=== PATIENT | female | born 1995 | race Hispanic/Latino ===

== ENCOUNTER → 2019-01-03 13:38 | Outpatient (CLI) | payer OTHER, SELFPAY ==
--- NOTE | 2019-01-03 | DI.US.S_ITS ---
PROCEDURE: US OB <= 14 WEEKS FETUS INDICATIONS: SIZE AND DATES OUTSIDE/PRIOR DATING DATA: Last menstrual period (LMP): 11/22/18. LMP-based estimated date of delivery (OTILIO): 08/29/19. First dating scan (date and location): 01/03/19. Estimated date of delivery (OTILIO) from first dating scan: 08/29/18. TECHNIQUE: Real-time scanning was performed of the fetus and maternal pelvic organs, with image documentation. COMPARISON: None. FINDINGS: Embryo: Single living intrauterine gestation with crown-rump length 3 mm correlates with a 5 week 6 day gestational age and heart rate is 157 beats per minute Measurement variability in dating: +/- 4 weeks by LMP, +/- 7 days by mean sac diameter (use before 6 weeks gestation if crown-rump length not able to be measured), +/- 5 days by crown-rump length (up to 8 weeks 6 days gestation), +/- 7 days by crown-rump length (up to 13 weeks 6 days gestation). Maternal organs: Ovaries normal considering gestational status. Limited images through the kidneys demonstrate no hydronephrosis. IMPRESSION: Early first trimester gestation with heart activity observed, with delivery date projected be centered on 08/29/18, plus or -5 days. Followup anatomic survey at 21 weeks gestation is recommended. Dictated by: David Tucker M.D. on 01/03/2019 at 17:32 Approved by: David Tucker M.D. on 01/03/2019 at 17:33
== END ==
PROVIDERS: PCP Family Medicine; Visit Provider Family Medicine
DX: Z36.87 Encounter for antenatal screening for uncertain dates (principal); Z3A.01 Less than 8 weeks gestation of pregnancy
CPT/HCPCS: 76801; 76817

== ENCOUNTER → 2019-01-31 12:10 | Outpatient (CLI) | payer OTHER, SELFPAY ==
[2019-01-31 12:25] LABS: Add Manual Diff / Slide Review NO; Basophils Absolute Auto 0 /uL (0-100); Basophils Percent Auto 0.4 % (0-2); Eosinophils Absolute Auto 0 /uL (0-450); Eosinophils Percent Auto 0.1 % (2-4); Hematocrit 37.6 % (36-46); Hemoglobin 12.7 g/dL (12.0-16.0); Lymphocytes Absolute Auto 3100 /uL (1100-4500); Lymphocytes Percent Auto 26.6 % (25-40); Mean Corpuscular HGB Conc 33.8 % (30-36); Mean Corpuscular Volume 85.9 fL (80-100); Monocytes Absolute Auto 700 /uL (0-900); Monocytes Percent Auto 6.4 % (3-14); Neutrophils Absolute Auto 7700 /uL (1500-7000); Neutrophils Percent Auto 66.5 % (50-75); Platelet Count 274 X10^3/uL (150-400); Red Blood Cell Count 4.38 X10^6/uL (4.0-5.2); White Blood Cell Count 11.6 X10^3/uL (4.5-11.0)
[2019-01-31 12:48] LABS: Appearance Urine UA CLEAR; Bilirubin Urine UA NEGATIVE (NEGATIVE); Color Urine UA YELLOW; Glucose Urine UA NEGATIVE (Negative); Ketones Urine UA NEGATIVE (NEGATIVE); Leukocyte Esterase Urine UA NEGATIVE (NEGATIVE); Nitrite Urine UA NEGATIVE (Negative); Occult Blood Urine UA NEGATIVE (Negative); Protein Urine UA NEGATIVE (Negative); Specific Gravity Urine UA 1.025 (1.000-1.035); Urobilinogen Urine UA 0.2 E.U./dL (0.2); pH Urine UA 5.5 (4.5-8.0)
[2019-01-31 18:08] LABS: Hepatitis B Surface Antigen NEGATIVE s/c (NEGATIVE); Rubella Antibody IgG 93.8 IU/mL (>15)
[2019-01-31 18:34] LABS: HIV 1 & 2 Ab/Ag 4th Gen Combo NEGATIVE (NEGATIVE); Hep C Virus Ab w/Reflex Quant NEGATIVE s/c (NEGATIVE)
[2019-01-31 19:46] LABS: Urine N gonorrhoeae NOT DETECTED
[2019-01-31 20:04] LABS: Urine Chlamydia NOT DETECTED
[2019-02-02 14:15] LABS: RPR Screen Nonreactive (Nonreactive)
== END ==
PROVIDERS: PCP Family Medicine; Visit Provider Obstetrics & Gynecology
DX: Z34.81 Encounter for supervision of other normal pregnancy, first trimester (principal); Z3A.10 10 weeks gestation of pregnancy
CPT/HCPCS: 36415; 80055; 81003; 86787; 86803; 86850; 86900; 86901; 87077; 87086; 87185; 87186; 87389; 87491; 87591

== ENCOUNTER → 2019-03-20 15:41 | Outpatient (CLI) | payer OTHER, SELFPAY ==
[2019-03-28 11:21] LABS: Calc Gestational Age 16.9; Cigarette Smoker NO; Donated Egg N; Donor Egg Age NOT GIVEN; Estriol, Free 1.37 ng/mL; Inhibin A, Dimeric 152 pg/mL; Maternal Ethnicity HISPANIC; Maternal Weight 128 lbs; Number of Fetuses NOT GIVEN; Previous Pregnancy Down Syndro N; hCG, MoM 0.84; hCG, Serum 27.1 IU/mL
== END ==
PROVIDERS: PCP Family Medicine; Visit Provider Obstetrics & Gynecology
DX: Z34.02 Encounter for supervision of normal first pregnancy, second trimester (principal); Z3A.16 16 weeks gestation of pregnancy
CPT/HCPCS: 36415; 82105; 82677; 84702; 86336

== ENCOUNTER → 2019-04-18 09:10 | Outpatient (CLI) | payer OTHER, SELFPAY ==
--- NOTE | 2019-04-18 09:11 | DI.US.S_ITS ---
PROCEDURE: US OB >= 14 WEEKS FETUS INDICATIONS: ANATOMY SCAN OUTSIDE/PRIOR DATING DATA: Last menstrual period (LMP): 11/22/18. LMP-based estimated date of delivery (OTILIO): 08/29/19. First dating scan (date and location): 01/03/19. Estimated date of delivery (OTILIO) from first dating scan: 08/30/19. TECHNIQUE: Real-time scanning was performed of the fetus, with image documentation and biometric measurements. COMPARISON: [facility], , OB >= 14 WEEKS FETUS, 03/20/2019, 15:28. FINDINGS: General: A single living intrauterine gestation is present. Presentation: Vertex. Placenta: Placental position is posterior fundal, without previa. Amniotic fluid index: 10.7 cm, normal range is 5-24 cm. heart rate: 147 beats per minute. Maternal cervical canal: 3.1 cm long. Normal lower limit is 2.5 cm. biometrics: Biparietal diameter: 20 weeks 3 days Head circumference: 20 weeks 5 days Abdominal circumference: 22 weeks Femur length: 20 weeks 1 day Estimated gestational age from initial scan: 20 weeks 6 days Composite gestational age from present scan: 20 weeks 5 days 397 g Estimated weight and percentile: 57 percentile Measurement variability for biometric dating: +/- 7 days from 14 weeks to 15 weeks 6 days gestation, +/- 10 days from 16 weeks to 21 weeks 6 days gestation, +/- 2 weeks from 22 weeks to 27 weeks 6 days gestation, +/- 3 weeks for 28 weeks gestation or later. weight reference: 4500 g or EFW >90/95% is considered macrosomia or large for gestational age. EFW <10% is small for gestational age. EFW 5% or less is considered intra-uterine growth restriction. Anatomic survey: Neuro: Ventricles are non-dilated at less than 10 mm. Cisterna magna is normal at 3-11 mm. Cerebellum is normal in size and morphology. Nuchal skin fold: Normal at less than 6 mm between 14-21 weeks gestational age. Face: Nose and lips, facial profile are normal. Spine: No evidence for spina bifida. Heart: 4-chambered heart is present, with normal ventricular outflow tracts. Small amount of pericardial fluid present which is likely within normal limits representing physiologic pericardial fluid. Diaphragm: Diaphragm is intact. Stomach: Left-sided stomach is present. Kidneys: No hydronephrosis. Normal is less than 5 mm in 2nd trimester, less than 7 mm in 3rd trimester. Cord: 3-vessel cord has orthotopic insertion. Bladder: Normal in size. Extremities: The left foot is not well visualized; otherwise normal extremities. IMPRESSION: 1. Single living IUP redemonstrated interval growth is normal. 2. The left foot is not visualized; otherwise normal anatomic survey. 3. Small amount of pericardial fluid, likely within normal limits and physiologic which can also be reassessed on followup examination. Dictated by: Michael Pierre [facility] Interpreted: Caitlin Lewis MD on 04/18/2019 at 12:55 Approved by: Caitlin Lewis MD, PhD on 04/18/2019 at 13:27
[2019-04-18 13:01] LABS: Appearance Urine UA SL CLOUDY; Bilirubin Urine UA NEGATIVE (NEGATIVE); Color Urine UA YELLOW; Glucose Urine UA NEGATIVE (Negative); Ketones Urine UA NEGATIVE (NEGATIVE); Leukocyte Esterase Urine UA 3+ (NEGATIVE); Nitrite Urine UA NEGATIVE (Negative); Occult Blood Urine UA 2+ (Negative); Protein Urine UA TRACE (Negative); Urobilinogen Urine UA 0.2 E.U./dL (0.2)
[2019-04-18 13:12] LABS: pH Urine UA 7.5 (4.5-8.0)
[2019-04-18 13:22] LABS: RBC Urine 0-1/HPF (0-5/HPF)
[2019-04-18 13:23] LABS: Bacteria Urine Many (>30); Squamous Epithelial Cell Urine >30 /HPF (0-5/HPF); WBC Urine >100/HPF (0-5/HPF)
== END ==
PROVIDERS: PCP Family Medicine; Visit Provider Obstetrics & Gynecology
DX: Z36.89 Encounter for other specified antenatal screening (principal); Z3A.20 20 weeks gestation of pregnancy; O99.89 Other specified diseases and conditions complicating pregnancy, childbirth and the puerperium; R31.9 Hematuria, unspecified
CPT/HCPCS: 76811; 81001

== ENCOUNTER → 2019-05-15 12:12 | Outpatient (CLI) | payer OTHER, SELFPAY | PROVIDERS: PCP Family Medicine; Visit Provider Obstetrics & Gynecology | DX: R82.90 Unspecified abnormal findings in urine (principal) | CPT/HCPCS: 87077; 87086; 87186 ==

== ENCOUNTER → 2019-06-13 10:09 | Outpatient (CLI) | payer OTHER, SELFPAY | PROVIDERS: PCP Family Medicine; Visit Provider Family Medicine | DX: Z34.83 Encounter for supervision of other normal pregnancy, third trimester (principal) | CPT/HCPCS: 87077; 87086; 87147; 87186 ==

== ENCOUNTER → 2019-06-27 14:36 | Outpatient (CLI) | payer OTHER, SELFPAY | PROVIDERS: PCP Family Medicine; Visit Provider Family Medicine | DX: Z34.00 Encounter for supervision of normal first pregnancy, unspecified trimester (principal) | CPT/HCPCS: 87077; 87086 ==

== ENCOUNTER 2019-07-14 04:38 | Observation (INO) | payer OTHER, SELFPAY ==
--- NOTE | 2019-07-14 05:03 | DI.US.S_ITS ---
PROCEDURE: US OB LIMITED INDICATIONS: CERVICAL LENGTH TECHNIQUE: Real-time scanning was performed of the fetus, with image documentation and biometric measurements. Additionally, endovaginal pelvic ultrasound imaging was performed to evaluate the cervical length. COMPARISON: [facility], US, US OB >= 14 WEEKS FETUS, 06/27/2019, 15:09. [facility], , US OB >= 14 WEEKS FETUS, 04/18/2019, 9:23. [facility], US, US OB >= 14 WEEKS FETUS, 03/20/2019, 15:28. [facility], US, US OB <= 14 WEEKS FETUS, 01/31/2019, 11:57. FINDINGS: General: A single living intrauterine gestation is present. Presentation: Cephalic Placenta: Placental position is posterior fundal Amniotic fluid index: 22 cm. heart rate: 140 beats per minute. Maternal cervical canal: 3.0 cm in length. The cervix is closed. No funneling or fluid is seen within the endocervical canal. Other: No gross anatomic abnormalities are evident of the provided images of the fetus. The fetus is not adequately evaluated. IMPRESSION: 1. The cervix is closed and measures 3.0 cm in length. 2. Live intrauterine . Dictated by: Yimi Sunshine M.D. on 07/14/2019 at 7:58 Approved by: Yimi Sunshine M.D. on 07/14/2019 at 8:00
[2019-07-14] MEDS: NIFEdipine 10 MG CAPSULE PO ×4 (05:26→06:21)
[2019-07-14 06:08] LABS: Appearance Urine UA CLEAR; Bilirubin Urine UA NEGATIVE (NEGATIVE); Color Urine UA YELLOW; Glucose Urine UA NEGATIVE (Negative); Ketones Urine UA TRACE (NEGATIVE); Leukocyte Esterase Urine UA 1+ (NEGATIVE); Nitrite Urine UA NEGATIVE (Negative); Occult Blood Urine UA TRACE-LYSED (Negative); Protein Urine UA 1+ (Negative); Specific Gravity Urine UA 1.025 (1.000-1.035); Urobilinogen Urine UA 0.2 E.U./dL (0.2)
[2019-07-14 06:15] LABS: RBC Urine None Seen (0-5/HPF)
[2019-07-14 06:17] LABS: Bacteria Urine Moderate (10-30); Squamous Epithelial Cell Urine 1-5 /HPF (0-5/HPF); WBC Urine 10-30/HPF (0-5/HPF)
[2019-07-14 06:18] LABS: Culture Indicated Urine Specimen Cultured; Sperm Urine PRESENT
--- NOTE | 2019-07-14 06:49 | PM.OBTRLD ---
Visit Information Visit Information Date of evaluation: 07/14/19 Primary OB Provider: Nadia Benitez On-call OB Provider: Antoinette Gomez Reason for Evaluation: Yes pre-term labor Comments/Additional reasons for admission: Patient called due to severe low back pain radiating to her hips that was preventing her from sleeping. Denied contractions, bleeding or leaking of fluid. This is her first baby. She has been treated for 2 UTIs this but denied urinary symptoms at this time or fevers. Vital Signs Vital Signs: Temperature 98.6? blood pressure 134/86 heart rate 84 PFSH Medical History Anxiety (Chronic ~2018) Depression (Chronic ~2018) Family History Grandfather Cancer Diabetes mellitus Heart disease Grandmother Essential hypertension Thyroid cancer Mother Age: 46 Essential hypertension Father High cholesterol Hypertension Social History Smoking Status: Never smoker Objective Labs Labs: Laboratory Results - last 24 hr 07/14/19 05:40 Urine Color Yellow Urine Appearance Clear Urine pH 5.0 Ur Specific [place] 1.025 Urine Protein 1+ H Urine Glucose (UA) Negative Urine Ketones Trace H Urine Occult Blood Trace-lysed Urine Nitrate Negative Urine Bilirubin Negative Urine Urobilinogen 0.2 Ur Leukocyte Esterase 1+ H Urine RBC None seen Urine WBC 10-30/hpf H Ur Squamous Epith Cells 1-5 /hpf D Urine Bacteria Moderate (10-30) H Urine Sperm Present Ur Culture Indicated? Specimen cultured Evaluation Evaluation Baseline heart rate: 140 Variability: Moderate (11-25) monitor accelerations: Present monitor decelerations: Absent Contraction Frequency (minutes): 3 Category of Tracing: I Laboratory results: Laboratory Tests 07/14/19 05:40 Urine Color Yellow Urine Appearance Clear Urine pH 5.0 Ur Specific [place] 1.025 Urine Protein 1+ H Urine Glucose (UA) Negative Urine Ketones Trace H Urine Occult Blood Trace-lysed Urine Nitrate Negative Urine Bilirubin Negative Urine Urobilinogen 0.2 Ur Leukocyte Esterase 1+ H Urine RBC None seen Urine WBC 10-30/hpf H Ur Squamous Epith Cells 1-5 /hpf D Urine Bacteria Moderate (10-30) H Urine Sperm Present Ur Culture Indicated? Specimen cultured Diagnosis, Plan/Disposition Final Diagnosis (1) 33 weeks gestation of : Current Visit: No Status: Acute (2) contractions: Current Visit: No Status: Acute (3) UTI in : Current Visit: No Status: Acute Plan/Disposition Plan: Patient is a 23-year-old at 33 weeks and 3 days gestation who presented with low back pain and regular contractions. Cervical length was 3 cm on ultrasound which was reassuring however patient continued to contract. UA suspicious for UTI and patient has had 2 UTIs this . Patient was given a dose of Macrobid as well as nifedipine per protocol and 1 L of LR. After treatment, contractions ceased and patient reported feeling much better with respect to her back. She will discharge home and complete a course of Macrobid. Urine culture is pending. OB Disposition: home
[2019-07-14] MEDS: LACTATED RINGERS 1,000 ML 1000 ML IV (07:20)
[2019-07-14] MEDS: NITROFURANTOIN ER 100 MG CAPSULE PO (07:20)
== END 2019-07-14 09:00 | disposition home or self-care (01) ==
LOC: LABOR 04:40
PROVIDERS: Admitting Provider Family Medicine; PCP Family Medicine; Referring Provider Family Medicine; Visit Provider Family Medicine
DX: O47.03 False labor before 37 completed weeks of gestation, third trimester (principal); N39.0 Urinary tract infection, site not specified; Z3A.33 33 weeks gestation of pregnancy
CPT/HCPCS: 59025; 59050; 76815; 76830; 81003; 81015; 87077; 87086; 87186; 96360; G0378; G0379

== ENCOUNTER 2019-07-29 05:35 | Observation (INO) | payer OTHER, SELFPAY ==
[2019-07-29] MEDS: NIFEdipine 10 MG CAPSULE PO ×4 (06:13→07:17)
[2019-07-29] MEDS: LACTATED RINGERS 1,000 ML 1000 ML IV (06:13)
[2019-07-29 06:39] LABS: Appearance Urine UA CLEAR; Bilirubin Urine UA NEGATIVE (NEGATIVE); Color Urine UA YELLOW; Glucose Urine UA NEGATIVE (Negative); Ketones Urine UA NEGATIVE (NEGATIVE); Leukocyte Esterase Urine UA TRACE (NEGATIVE); Nitrite Urine UA NEGATIVE (Negative); Occult Blood Urine UA TRACE-INTACT (Negative); Protein Urine UA NEGATIVE (Negative); Specific Gravity Urine UA 1.015 (1.000-1.035); Urobilinogen Urine UA 0.2 E.U./dL (0.2)
[2019-07-29 06:47] LABS: RBC Urine 0-1/HPF (0-5/HPF); Squamous Epithelial Cell Urine 0-1 /HPF (0-5/HPF); WBC Urine 0-1/HPF (0-5/HPF)
[2019-07-29 06:48] LABS: Bacteria Urine Few (2-10); Culture Indicated Urine Specimen Cultured; Mucus Urine 2+ (Negative)
--- NOTE | 2019-07-29 09:41 | PM.OBTRLD ---
Visit Information Visit Information Date of evaluation: 07/29/19 Primary OB Provider: Nadia Benitez On-call OB Provider: Ximena Wang Reason for Evaluation: Yes rule out labor Comments/Additional reasons for admission: This patient is a 23-year-old at 35 and 6 by 10 week ultrasound with a history of multiple UTIs in and evaluations for contractions, presenting reporting contractions. The patient reports that overnight, she had bouts of pain that were constant for 5 minutes, radiated down her hips from her lower back, and were precipitated by movement. She reports that she had this cramping pain in her low back for 5 minutes straight, with 3-4 minutes in between cramps and was precipitated by movement. She reports good movement, denies vaginal bleeding or loss of fluid, denies dysuria, denies GI complaints, and reports no other complaints obstetrical or otherwise, with no signs of pyelonephritis. The patient has been treated for UTI twice during this , most recently 2 weeks ago with Macrobid. Patient denies any other complications or contributory medical or surgical history. Vital Signs Vital Signs: 109/65, HR 80, T 36.7 [facility] Medical History Anxiety (Chronic ~2018) Depression (Chronic ~2018) Family History Grandfather Cancer Diabetes mellitus Heart disease Grandmother Essential hypertension Thyroid cancer Mother Age: 46 Essential hypertension Father High cholesterol Hypertension Social History Smoking Status: Never smoker Review of Systems Constitutional Constitutional: Reports system reviewed and no additional complaints, except as documented Cardiovascular Cardiovascular: Reports system reviewed; no additional complaints, except as documented Respiratory Respiratory: Reports system reviewed and no additional complaints, except as documented Gastrointestinal Gastrointestinal: Reports as per HPI Genitourinary Genitourinary: Reports as per HPI Musculoskeletal Musculoskeletal: Reports as per HPI Neurologic Neurologic: Reports system reviewed and no additional complaints, except as documented Exam Const General: cooperative, healthy appearing and comfortable Resp Effort & Inspection: normal respiratory effort Auscultation: clear to auscultation bilaterally Cardio Rate: regular rate Rhythm: regular rhythm GI Palpation: soft and No tender Other: No suprapubic tenderness External Female Exam: external appearance normal Skin General: no rashes or lesions noted Objective Labs Labs: Laboratory Results - last 24 hr 07/29/19 06:30 Urine Color Yellow Urine Appearance Clear Urine pH 5.0 Ur Specific [place] 1.015 Urine Protein Negative Urine Glucose (UA) Negative Urine Ketones Negative Urine Occult Blood Trace-intact Urine Nitrate Negative Urine Bilirubin Negative Urine Urobilinogen 0.2 Ur Leukocyte Esterase Trace H Urine RBC 0-1/hpf Urine WBC 0-1/hpf Ur Squamous Epith Cells 0-1 /hpf Urine Bacteria Few (2-10) H Urine Mucus 2+ H Ur Culture Indicated? Specimen cultured Evaluation Evaluation Baseline heart rate: 135 Variability: Moderate (11-25) monitor accelerations: Present monitor decelerations: Absent Contraction Frequency (minutes): 3 Uterine Contraction Intensity: Mild Category of Tracing: I Cervical dilation (cm): 0 Cervical effacement (%): 50 station: -3 Laboratory results: Laboratory Tests 07/29/19 06:30 Urine Color Yellow Urine Appearance Clear Urine pH 5.0 Ur Specific [place] 1.015 Urine Protein Negative Urine Glucose (UA) Negative Urine Ketones Negative Urine Occult Blood Trace-intact Urine Nitrate Negative Urine Bilirubin Negative Urine Urobilinogen 0.2 Ur Leukocyte Esterase Trace H Urine RBC 0-1/hpf Urine WBC 0-1/hpf Ur Squamous Epith Cells 0-1 /hpf Urine Bacteria Few (2-10) H Urine Mucus 2+ H Ur Culture Indicated? Specimen cultured Comments: External os 2 cm, closed internal os. Diagnosis, Plan/Disposition Plan/Disposition Plan: The this patient is having contractions, serial cervical exams 3 hours apart have not shown any cervical dilation. It has been 2 hours since her last dose of nifedipine per the usual protocol, and her contraction pattern has not significantly changed. The patient reports that her symptoms have entirely resolved, they have remained resolved for the past 2 hours. The patient does have signs of a UTI on her UA, though improved since her prior exam. In the setting of contractions and multiple prior UTIs and given the association of UTI with labor an dincreased risk of pyelonephritis, The patient will be treated. I discussed a dose of IV Ancef with the patient along with p.o. Keflex for 5 days b.i.d. at home, given that her penicillin allergy is a rash. I discussed with the patient that she may still have labor, and she plans to remain in [place] until tomorrow. We discussed precautions for return and signs and symptoms of labor, encouraged her to follow-up with Dr. Benitez within the week. All questions were answered and the patient vocalized understanding. OB Disposition: home
[2019-07-29] MEDS: CEFAZOLIN 2 GM/100 ML FROZ.PIGGY IV (10:16)
== END 2019-07-29 11:17 | disposition home or self-care (01) ==
PROVIDERS: Obstetrics & Gynecology; Admitting Provider Family Medicine; PCP Family Medicine; Referring Provider Family Medicine; Visit Provider Family Medicine
DX: O47.03 False labor before 37 completed weeks of gestation, third trimester (principal); Z3A.35 35 weeks gestation of pregnancy
CPT/HCPCS: 59025; 59050; 81001; 87077; 87086; 87186; 96360; 96372; G0378; G0379; J0690

== ENCOUNTER → 2019-08-02 08:25 | Outpatient (CLI) | payer OTHER, SELFPAY ==
[2019-08-03 12:15] LABS: Strep Grp B PCR NEG for Grp B Strep
== END ==
PROVIDERS: PCP Family Medicine; Visit Provider Family Medicine
DX: Z34.03 Encounter for supervision of normal first pregnancy, third trimester (principal); Z3A.36 36 weeks gestation of pregnancy
CPT/HCPCS: 87653

== ENCOUNTER → 2019-08-08 10:19 | Outpatient (CLI) | payer OTHER, SELFPAY | PROVIDERS: PCP Family Medicine; Visit Provider Family Medicine | DX: Z34.00 Encounter for supervision of normal first pregnancy, unspecified trimester (principal); Z3A.37 37 weeks gestation of pregnancy | CPT/HCPCS: 87086 ==

== ENCOUNTER 2019-08-20 11:11 | Inpatient (IN) | payer OTHER, SELFPAY ==
[2019-08-20] MEDS: LACTATED RINGERS 1,000 ML 100 ML IV ×2 (12:15→22:53)
[2019-08-20 12:24] LABS: Add Manual Diff / Slide Review NO; Basophils Absolute Auto 100 /uL (0-100); Basophils Percent Auto 0.4 % (0-2); Eosinophils Absolute Auto 0 /uL (0-450); Eosinophils Percent Auto 0.1 % (2-4); Hematocrit 35.5 % (36-46); Hemoglobin 11.5 g/dL (12.0-16.0); Lymphocytes Absolute Auto 2400 /uL (1100-4500); Lymphocytes Percent Auto 14.6 % (25-40); Mean Corpuscular HGB Conc 32.4 % (30-36); Mean Corpuscular Volume 77.1 fL (80-100); Monocytes Absolute Auto 700 /uL (0-900); Monocytes Percent Auto 3.9 % (3-14); Neutrophils Absolute Auto 13500 /uL (1500-7000); Platelet Count 276 X10^3/uL (150-400); White Blood Cell Count 16.7 X10^3/uL (4.5-11.0)
--- NOTE | 2019-08-20 12:35 | P.HPOB_ITS ---
OB HPI Date/Time Date of admission: 08/20/19 Date Patient Seen: 08/20/19 Time Patient Seen: 12:30 History of Present Condition Chief complaint: OBSERVATION OF LABOR : 1 Para: 0 Estimated Date of Delivery: 08/29/19 Estimated Gestational Age (weeks): 38w5d Narrative: Leann Huntley is a 23 yo at 38w5d here due to painful contractions. Pt reports losing her mucus plug earlier this morning, and contractions starting shortly after. Increasing in frequency and intensity since then. Primarily in her back. No LOF or vaginal bleeding. Feeling baby move regularly. History of Present care: good care, initiated at week # (10) and pounds weight gain (53) Dating criteria: LMP confirmed by 1st trimester US Ultrasounds: normal 1st trimester US and normal mid trimester US Obstetrical complications: other (difficult to cure E coli UT) Medical complications: other (depression) Preadmission Labs Blood type: A (+) positive -: Antibody screen: negative, GBS status: negative, HBsAG: negative, HIV: negative and RPR/VDLR: negative -: Chlamydia screen: not detected and Gonorrhea screen: not detected -: Rubella: immune and Varicella: immune HCAB: negative Quad screen: Normal 1 hr GTT: 106 Evaluation Evaluation Baseline heart rate: 145 Variability: Moderate (11-25) monitor accelerations: Present monitor decelerations: Absent Contraction Frequency (minutes): 3 Uterine Contraction Intensity: Strong/Firm Category of Tracing: I Cervical dilation (cm): 4 Cervical effacement (%): 90 station: -2 Laboratory results: Laboratory Tests 08/20/19 12:11 WBC 16.7 H RBC 4.60 Hgb 11.5 L Hct 35.5 L MCV 77.1 L MCH 25.0 L MCHC 32.4 RDW 16.0 H Plt Count 276 Neut % (Auto) 81.0 H Lymph % (Auto) 14.6 L Bradley % (Auto) 3.9 Eos % (Auto) 0.1 L Baso % (Auto) 0.4 Neut # (Auto) 20623 H Lymph # (Auto) 2400 [place] # (Auto) 700 Eos # (Auto) 0 Baso # (Auto) 100 PFSH Social History Smoking Status: Smoker, status unknown Meds Home Medications and Allergies Home Medications Medication Instructions Recorded Confirmed Type citalopram 40 mg tablet 40 mg PO DAILY 01/31/19 08/20/19 History prenat.vits,arlen,zut-sbed-gndwf 1 tab PO DAILY 01/31/19 08/20/19 History bupropion HCl 150 mg 24 hr tablet, 150 mg PO QAM 02/01/19 08/20/19 History extended release cephalexin 500 mg PO BID #10 tab 07/29/19 08/20/19 Rx Allergies Allergy/AdvReac Type Severity Reaction Status Date / Time amoxicillin AdvReac Skin Rash Verified 06/13/19 09:16 Exam Narrative Exam Narrative: Gen: NAD, sitting comfortably in bed, appears well CV: RRR, no murmurs Resp: clear to auscultation bilaterally Abd: soft, nontender, nondistended, gravid Ext: trace edema Objective Labs Result Diagrams: 08/20/19 12:11 Labs: Laboratory Results - last 24 hr 08/20/19 12:11 WBC 16.7 H RBC 4.60 Hgb 11.5 L Hct 35.5 L MCV 77.1 L MCH 25.0 L MCHC 32.4 RDW 16.0 H Plt Count 276 Neut % (Auto) 81.0 H Lymph % (Auto) 14.6 L Bradley % (Auto) 3.9 Eos % (Auto) 0.1 L Baso % (Auto) 0.4 Neut # (Auto) 39287 H Lymph # (Auto) 2400 [place] # (Auto) 700 Eos # (Auto) 0 Baso # (Auto) 100 Assessment and Plan Assessment and Plan Assessment and Plan narrative: 23yo at 38w5d who presented with regular painful contractions, in active labor. Pt with SROM and clear fluid after initial cervical exam. GBS negative, Rh positive. - Expectant management, anticipate - FHT reassuring - Epidural for pain control in place - Continue to monitor contraction frequency, may need pitocin for augmentation - GBS negative, no prophlaxis indicated
--- NOTE | 2019-08-20 12:39 | PM.AN.REGBLK ---
Regional Block Pre-procedure Procedure: Continuous Lumbar Epidural for L&D Attending OB provider: Nadia Benitez PMH/ROS narrative: term labor, no complications. Hx: No personal or family history of anesthesia problems. ASA Class: II Labs: Hct 35.5 % (36-46) L 08/20/19 12:11 Plt Count 276 X10^3/uL (150-400) 08/20/19 12:11 Medications: Current Medications Generic Name Dose Route Start Last Admin Trade Name Freq PRN Reason Stop Dose Admin Diphenhydramine HCl 25 mg 08/20/19 12:05 Benadryl IV Q10M PRN Pruritis Fentanyl 50 mcg 08/20/19 11:28 Sublimaze IV Q1H PRN Pain, Moderate (4-6) Lactated Ringer's 1,000 mls @ 100 mls/hr 08/20/19 11:30 08/20/19 12:15 Lactated Ringers IV 100 mls/hr CONT FOREIGN Administration FENT 2MCG/ML BUPIV 0.125% EPI 200 mcg in 100 mls @ 8 mls/hr 08/20/19 12:15 Fentanyl/Bupiv/Ns 2mcg/Ml - 0.125% EPIDURAL CONT FOREIGN Naloxone HCl 0.2 mg 08/20/19 11:28 Narcan IV Q2MIN PRN Opiate Reversal Ondansetron HCl 4 mg 08/20/19 11:28 Zofran IV Q4HR PRN Nausea And Vomiting Allergies: Allergies Allergy/AdvReac Type Severity Reaction Status Date / Time amoxicillin AdvReac Skin Rash Verified 06/13/19 09:16 Procedure Insertion date: 08/20/19 Insertion time: 12:18 Prep/Local: betadine x3 Interspace: L2-3 Patient position: sitting Needle: 18 gauge Gridpoint Systemstead (27g Pencan through Hustead, CSE, 0.5mL 0.25% MPF bupiv) Loss of resistance with: saline TAYO at (cm): 4 Catheter placed at SKIN (cm): 10 Catheter in SPACE (cm): 6 Initial Medications TEST DOSE time: 12:20 TEST DOSE: 1.5% lidocaine with epinephrine 1:200k (mL): 3 Infusion INFUSION: 0.125% bupivacaine and with fentanyl 2 mcg/mL Initial rate (mL/hr): 8 Subsequent interventions: continuous 8mL/h with 3mL bolus PCEA q15m. 18:10 4mL 0.25% bupiv with 50mcg fentanyl bolus, increased infusion to 10mL/h. 20:30 5mL 2% chloroprocaine with 50mcg fentanyl. Post-procedure Anesthesia time START: 12:10 Anesthesia time END: 23:42 Post-procedure Anesthesia Assessment: Yes CV function: HR/BP stable, Yes Resp function: RR/sat/airway adequate, Yes Post-op hydration adequate, Yes Pain control adequate, Yes Nausea & vomiting absent and Yes Mental status appropriate
[2019-08-20 13:16] VITALS: BP 148/86
[2019-08-20] MEDS: OXYTOCIN PREMIX 30 UNIT/500 ML PLAST..BAG IV (14:05)
--- NOTE | 2019-08-20 17:03 | PM.OBPNLAB ---
Date/Time Date Patient Seen: 08/20/19 Time Patient Seen: 16:45 Pain Control Pain control: epidural Pelvic Exam Dilation (cm): 6 Effacement (%): 100 station: 0 Amniotic membrane status: Ruptured Comments: AROM performed after informed consent. Production of meconium-stained fluid. Contractions Monitor mode: External Pitocin rate (mU/min): 8 Contraction frequency (min): 3 Contraction pattern: Regular Contraction intensity: Strong/Firm Status status: Category l Heart Rate Baseline: 140 Monitor Accelerations: Present Monitor Decelerations: Absent Monitor Variability: Moderate Assessment and Plan Comments: 23yo at 38w5d here in active labor. AROM of forebag performed with production of meconium-stained fluid. Pitocin started for labor augmentation. GBS negative, Rh positive. - Expectant management, anticipate - GBS negative, no prophylaxis - Continue pitocin, titrate as tolerated - FHT reassuring - Epidural in place for pain control
[2019-08-20] MEDS: FENT 2MCG/ML BUPIV 0.125% EPI 200 MCG/100 ML PLAST..BAG 10 MCG EPIDURAL (19:45)
--- NOTE | 2019-08-20 23:57 | PM.OBPRVD ---
Labor & Delivery Delivery date: 08/20/19 Estimated blood loss (mL): 250 Narrative: Was urgently called to bedside by nursing staff whilst in the hospital for another OB patient. Patient had been delivered of a viable female infant precipitously by her labor nurse. Upon arrival, infant was skin to skin with mother and cord was pulsing. After cessation of pulsing, cord was clamped and cut. Placenta then delivered spontaneously and intact with three-vessel cord. Patient tolerated procedure well with no complications. Cervix, vagina, and perineum were explored and found to be intact except for a small vaginal tear that did not require repair. Estimated blood loss [address] Benitez arrived during the delivery of the placenta and resumed the remainder of care, please see her delivery note for complete details.
--- NOTE | 2019-08-21 11:05 | PM.OBPRVD ---
Labor & Delivery Delivery date: 08/21/19 Intrapartal events: None Cervical ripening method: none Induction method: none Delivery augmentation: rupture of membranes and pitocin Delivery monitor: external FHT Route of delivery: Episiotomy description: None L&D Laceration Description: Perineal - 1st Degree Estimated blood loss (mL): 250 Anesthesia type: Epidural Complications: None Narrative: PROCEDURE: at 38w5d presented in active labor and was admitted to Labor and Delivery. The patient progressed through the 1st stage over 11.5 hours. Due to minimal cervical change initially and spacing of her contractions, pitocin was initiated and titrated up. AROM was then performed with production of meconium-stained fluid. Pain was controlled with an epidural. The patient progressed through the 2nd stage over 1 hour and delivered by nursing a viable female infant with APGARs 9/9 at 23:42 via without complications. The placenta was then delivered by Dr Ramon with this provider present in room via gentle cord traction. The perineum and vagina were inspected with 1st degree perineal laceration noted that was hemostatic and therefore not sutured. PREPROCEDURE DIAGNOSIS: Intrauterine at 38w5d GBS negative RH positive Depression POSTPROCEDURE DIAGNOSIS: Intrauterine at 38w5d, delivered Same as preprocedure ROM APPEARANCE: Meconium-stained fluid BABY A DELIVERY TIME: 23:42 BABY A WEIGHT: 6lb9.7oz BABY A NUCHAL CORD: None PLACENTA DELIVERY TIME: 23:50 PLACENTA APPEARANCE: Intact Leroy Baby 1: Infant gender: Female Presentation: vertex position: Right Occiput Anterior Placenta delivery description: Spontaneous cord vessel description: 3 Vessels score (1 min): 9 score (5 min): 9 Plan for aftercare: Normal care
[2019-08-21] MEDS: IBUPROFEN 600 MG TABLET PO ×2 (15:33→21:52)
--- NOTE | 2019-08-21 17:10 | P.PNOB_ITS ---
Subjective - OB Subjective Date Patient Seen: 08/21/19 Time Patient Seen: 08:00 Interval history: Pt is doing well. She is ambulating and voiding without difficulty. Her lochia is minimal. She has minimal cramping pain. She has not yet passed flatus. Exam Narrative Exam Narrative: Gen: NAD, sitting comfortably in bed, appears well CV: RRR, no murmurs Resp: clear to auscultation bilaterally Abd: soft, nontender, fundus firm and below umbilicus, nondistended Ext: no edema Objective Labs Result Diagrams: 08/20/19 12:11 Assessment & Plan Assessment and Plan (1) (spontaneous vaginal delivery): Status: Acute Current Visit: Yes Plan Comments: 23yo PPD #1 s/p uncomplicated . Pt doing well. - Normal care - support Time Spent With Patient Time: Total time spent is greater than 50% in coordination of care (as docum ented) at patient's floor/unit and/or counseling patient: Time with patient: 25 - 35 minutes
[2019-08-22] MEDS: PRENATAL VIT,CALC/IRON/FOLIC 1 TABLET 1 TAB PO (08:18)
[2019-08-22] MEDS: DOCUSATE 100 MG CAPSULE PO (08:18)
[2019-08-22] MEDS: FERROUS GLUCONATE 324 MG TABLET PO (08:18)
--- NOTE | 2019-08-22 08:32 | P.DS_ITS ---
Discharge Providers Provider Date of admission: 08/20/19 11:11 Discharge Date: 08/22/19 Primary care physician: Marisa Cheng MD Consults: 08/22/19 00:08 Consult to Bending Machine Set Up Operator Routine Comment: Discharge provider: Nadia Benitez MD Summary Hospital Course Date Patient Seen: 08/22/19 Time Patient Seen: 07:50 Procedures: Spontaneous vaginal delivery Hospital Course: The pt presented in active labor. She received an epidural for pain control. Pitocin was used to augment her labor, and AROM was performed with production of meconium-stained fluid. She had an uncomplicated of a viable baby girl at 23:42 on 08/20/19. There was a small 1st degree perineal laceration that did not require repair. , there were no complications. At the time of discharge she was voiding, ambulating, and passing flatus without difficulty. Her lochia was decreasing appropriately. Her pain was well controlled. She was with good latch. She will f/u in clinic in 6 weeks for check. Peripartum Data Infant Delivery Method: Natural Vaginal Laceration description: Perineal - 1st Degree Episiotomy description: None Procedures: Spontaneous vaginal delivery complications: none [place] 1: Gender: Female Disposition of : home Discharge Diagnosis (1) (spontaneous vaginal delivery): Status: Acute Status at Discharge Cognitive/behavioral status at discharge: oriented Functional status at discharge: independent ambulation Overall status at discharge: patient is progressing back to baseline Time Spent with Patient Time attestation: Total time spent providing and/or coordinating discharge services: Time spent: Greater than 30 minutes Objective Labs Result Diagrams: 08/20/19 12:11 Exam Narrative Exam Narrative: Gen: NAD, sitting comfortably in bed, appears well CV: RRR, no murmurs Resp: clear to auscultation bilaterally Abd: soft, nontender, fundus firm and below umbilicus, nondistended Ext: no edema Discharge Plan Discharge Plan Patient Disposition: Home Discharge orders & Medications Prescriptions: New acetaminophen 325 mg Tablet 650 mg PO Q6HR PRN (Reason: Pain, Mild (1-3)) Qty: 30 RF: 0 Dermoplast (with menthol) 20-0.5 % Aerosol 1 spray topical Q1HR PRN (Reason: perineal pain) Qty: 15 RF: 0 docusate sodium [DOK] 100 mg Capsule 100 mg PO DAILY Qty: 30 RF: 0 ferrous gluconate 324 mg (38 mg iron) Tablet 324 mg PO DAILY Qty: 30 RF: 0 ibuprofen 600 mg Tablet 600 mg PO Q6HR PRN (Reason: Pain, Mild (1-3)) Qty: 30 RF: 0 Ejz-C-Qwlxgc Cream 1 applic topical PRN PRN (Reason: Tenderness) Qty: 28 RF: 0 Continued bupropion HCl [Wellbutrin XL] 150 mg tablet extended release 24 hr 150 mg PO QAM RF: 0 citalopram 40 mg tablet 40 mg PO DAILY RF: 0 prenat.vits,arlen,pgy-msgv-utgza tablet 1 tab PO DAILY RF: 0 Discontinued cephalexin 500 mg tablet 500 mg PO BID Qty: 10 RF: 0 Follow up/Referrals: Marisa Cheng MD [Primary Care Provider] - Nadia Benitez MD [Physician] - 6 Weeks (Appointment with on at 11:40am; check in time 10:40 am) Diet/Activity/Treatments Diet: Regular Skin/Wound/Dressing Care Report to your healthcare provider any signs of infection, such as:: chills, fever, increased pain and unusual drainage Visit Report/Discharge Packet Instructions: DI for Labor and Delivery, Vaginal Visit Report Forms: Patient Portal/API, Stroke Signs & Symptoms Discharge Data Primary Care Provider: Marisa Cheng Discharges patient from system. Discharge Date/Time: 08/22/19 10:39
[2019-08-22 08:59] VITALS: BP 126/87; PULSE 76; RESP 16; TEMP 36.5
== END 2019-08-22 10:39 | disposition home or self-care (01) | DRG 807 ==
PROVIDERS: Admitting Provider Family Medicine; PCP Family Medicine; Referring Provider Family Medicine; Visit Provider Family Medicine
DX: O60.23X0 Term delivery with preterm labor, third trimester, not applicable or unspecified (principal); Z37.0 Single live birth; O77.0 Labor and delivery complicated by meconium in amniotic fluid; Z3A.38 38 weeks gestation of pregnancy
CPT/HCPCS: 01967; 59050; 59400; 59409; 85025; 86850; 86900; 86901; G0379; J2590

== ENCOUNTER → 2020-07-04 10:15 | Outpatient (CLI) | payer SELFPAY ==
--- NOTE | 2020-07-04 | DI.US.S_ITS ---
PROCEDURE: US SOFT TISSUE HEAD AND NECK INDICATIONS: LUMP TECHNIQUE: Real-time scanning was performed of the neck region of interest, with image documentation. COMPARISON: None. FINDINGS: Multiple morphologically normal appearing lymph nodes present, largest measuring up to 7 mm in maximal short axis. Preserved fatty hilum. IMPRESSION: Multiple prominent morphologically normal appearing lymph nodes, largest measuring up to 7.0 mm maximal short axis. Recommend clinical correlation and management. Dictated by: Michael ROBERTS Interpreted: Augustus Logan MD on 07/04/2020 at 11:19 Approved by: Augustus Logan M.D. on 07/04/2020 at 12:07
== END ==
PROVIDERS: PCP Family Medicine; Referring Provider Family Medicine; Visit Provider Family Medicine
DX: R22.2 Localized swelling, mass and lump, trunk (principal)
CPT/HCPCS: 76536

== ENCOUNTER → 2021-01-07 10:49 | Outpatient (CLI) | payer OTHER, SELFPAY | PROVIDERS: PCP Physician Assistant; Visit Provider Physician Assistant | DX: N39.0 Urinary tract infection, site not specified (principal); R82.998 Other abnormal findings in urine | CPT/HCPCS: 87077; 87086; 87186 ==

== ENCOUNTER → 2021-03-03 15:00 | Outpatient (CLI) | payer OTHER, SELFPAY | PROVIDERS: PCP Physician Assistant; Visit Provider Physician Assistant | DX: R35.0 Frequency of micturition (principal) | CPT/HCPCS: 87077; 87086; 87186 ==

== ENCOUNTER → 2021-04-02 11:47 | Outpatient (CLI) | payer OTHER, SELFPAY | PROVIDERS: PCP Physician Assistant; Referring Provider Internal Medicine; Visit Provider Internal Medicine | DX: Z23 Encounter for immunization (principal) | CPT/HCPCS: 90471; 90686 ==

== ENCOUNTER → 2021-04-29 07:41 | Outpatient (CLI) | payer OTHER, SELFPAY ==
[2021-04-29 20:59] LABS: COVID19 - ORCAS (NP or Nasal) Negative (Negative)
== END ==
PROVIDERS: PCP Physician Assistant; Visit Provider Physician Assistant
DX: Z20.822 Contact with and (suspected) exposure to COVID-19 (principal)
CPT/HCPCS: U0003

== ENCOUNTER → 2021-05-04 10:45 | Outpatient (CLI) | payer OTHER, SELFPAY ==
[2021-05-04 20:45] LABS: COVID19 - ORCAS (NP or Nasal) Negative (Negative)
== END ==
PROVIDERS: PCP Physician Assistant; Referring Provider Family Medicine; Visit Provider Family Medicine
DX: Z20.822 Contact with and (suspected) exposure to COVID-19 (principal)
CPT/HCPCS: U0003

== ENCOUNTER → 2021-06-08 10:44 | Outpatient (CLI) | payer OTHER, SELFPAY ==
[2021-06-08 22:30] LABS: COVID19 - ORCAS (NP or Nasal) POSITIVE (Negative)
== END ==
PROVIDERS: PCP Physician Assistant; Visit Provider Physician Assistant
DX: U07.1 COVID-19 (principal); Z20.822 Contact with and (suspected) exposure to COVID-19
CPT/HCPCS: U0003

== ENCOUNTER → 2021-07-02 10:00 | Outpatient (CLI) | payer OTHER, SELFPAY ==
[2021-07-02 19:40] LABS: Add Manual Diff / Slide Review NO; Basophils Absolute Auto 0 /uL (0-100); Basophils Percent Auto 0.4 % (0-2); Eosinophils Absolute Auto 100 /uL (0-450); Eosinophils Percent Auto 1.7 % (2-4); Hemoglobin 13.8 g/dL (12.0-16.0); Lymphocytes Absolute Auto 3700 /uL (1100-4500); Mean Corpuscular HGB Conc 33.6 % (30-36); Mean Corpuscular Hemoglobin 28.6 PG (26-34); Monocytes Absolute Auto 400 /uL (0-900); Monocytes Percent Auto 5.3 % (3-14); Neutrophils Absolute Auto 3900 /uL (1500-7000); Neutrophils Percent Auto 47.6 % (50-75); Platelet Count 328 X10^3/uL (150-400); Red Blood Cell Count 4.82 X10^6/uL (4.0-5.2); Red Cell Distribution Width 13.7 % (11.6-14.8); White Blood Cell Count 8.2 X10^3/uL (4.5-11.0)
[2021-07-02 19:58] LABS: TSH w/ Reflex to FT4 1.36 uIU/mL (0.47-4.68)
== END ==
PROVIDERS: PCP Physician Assistant; Referring Provider Family Medicine; Visit Provider Family Medicine
DX: F32.9 Major depressive disorder, single episode, unspecified (principal)
CPT/HCPCS: 84443; 85025

== ENCOUNTER → 2021-07-28 08:18 | Outpatient (CLI) | payer OTHER, SELFPAY ==
[2021-07-28 20:45] LABS: COVID19 - ORCAS (NP or Nasal) Negative (Negative)
== END ==
PROVIDERS: PCP Physician Assistant; Visit Provider Family Medicine
DX: Z20.822 Contact with and (suspected) exposure to COVID-19 (principal)
CPT/HCPCS: U0003

== ENCOUNTER → 2021-11-23 08:43 | Outpatient (CLI) | payer OTHER, SELFPAY ==
[2021-11-23 19:21] LABS: Add Manual Diff / Slide Review NO; Basophils Absolute Auto 0 /uL (0-100); Basophils Percent Auto 0.4 % (0-2); Eosinophils Absolute Auto 200 /uL (0-450); Eosinophils Percent Auto 2.3 % (2-4); Hematocrit 39.3 % (36-46); Hemoglobin 13.3 g/dL (12.0-16.0); Lymphocytes Absolute Auto 4800 /uL (1100-4500); Lymphocytes Percent Auto 51.5 % (25-40); Mean Corpuscular HGB Conc 33.9 % (30-36); Mean Corpuscular Hemoglobin 28.6 PG (26-34); Mean Corpuscular Volume 84.5 fL (80-100); Monocytes Absolute Auto 600 /uL (0-900); Monocytes Percent Auto 6.2 % (3-14); Neutrophils Absolute Auto 3700 /uL (1500-7000); Neutrophils Percent Auto 39.6 % (50-75); Platelet Count 276 X10^3/uL (150-400); Red Blood Cell Count 4.65 X10^6/uL (4.0-5.2); Red Cell Distribution Width 13.4 % (11.6-14.8); White Blood Cell Count 9.2 X10^3/uL (4.5-11.0)
[2021-11-23 19:34] LABS: Hemoglobin A1C% w Est Avg Glu 5.5 % (4.0-6.0)
[2021-11-23 19:39] LABS: Alanine Aminotransferase 24 IU/L (<35); Albumin 4.6 g/dL (3.5-5.0); Albumin Globulin Ratio 1.4 (1.0-2.8); Alkaline Phosphatase 65 U/L (38-126); Aspartate Aminotransferase 29 IU/L (14-36); BUN Creatinine Ratio 21.6 (6-22); Bilirubin Total 0.7 mg/dL (0.2-1.3); Blood Urea Nitrogen 16 mg/dL (7-17); Calcium 9.8 mg/dL (8.4-10.2); Carbon Dioxide 23 mmol/L (22-32); Chloride 103 mmol/L (98-107); Cholesterol 186 mg/dL (140-199); Estimated Glomerular Filt Rate > 60 mL/min (>60); Globulin 3.2 g/dL (1.7-4.1); Glucose 100 mg/dL (70-100); HDL Cholesterol 47 mg/dL (40-60); HEMOLYSIS < 15 (0-50); LDL Cholesterol Calculated 105 mg/dL (<100); Potassium 4.3 mmol/L (3.4-5.1); Sodium 138 mmol/L (137-145); Total Protein 7.8 g/dL (6.3-8.2); Triglycerides 169 mg/dL (35-150)
[2021-11-23 19:55] LABS: Free T4, Direct Thyroxine 1.04 ng/dL (0.78-2.19)
[2021-11-23 20:09] LABS: Thyroid Stimulating Hormone 1.74 uIU/mL (0.47-4.68)
== END ==
PROVIDERS: PCP Physician Assistant; Visit Provider Family Medicine
DX: R53.83 Other fatigue (principal); Z11.3 Encounter for screening for infections with a predominantly sexual mode of transmission; Z13.1 Encounter for screening for diabetes mellitus; Z13.220 Encounter for screening for lipoid disorders
CPT/HCPCS: 80053; 80061; 83036; 84439; 84443; 85025; 87522

== ENCOUNTER → 2022-01-14 14:35 | Outpatient (CLI) | payer OTHER, SELFPAY | PROVIDERS: PCP Family Medicine; Visit Provider Family Medicine | DX: R30.0 Dysuria (principal); R39.15 Urgency of urination | CPT/HCPCS: 87077; 87086; 87186 ==

== ENCOUNTER → 2022-03-24 17:20 | Outpatient (CLI) | payer OTHER, SELFPAY | PROVIDERS: PCP Family Medicine; Referring Provider Internal Medicine; Visit Provider Internal Medicine | DX: Z23 Encounter for immunization (principal) | CPT/HCPCS: 90471; 90686 ==

== ENCOUNTER → 2022-03-29 11:17 | Outpatient (CLI) | payer OTHER, SELFPAY | PROVIDERS: PCP Family Medicine; Visit Provider Physician Assistant | DX: R10.9 Unspecified abdominal pain (principal) | CPT/HCPCS: 87086 ==

== ENCOUNTER → 2022-07-21 07:43 | Outpatient (CLI) | payer OTHER, SELFPAY | PROVIDERS: PCP Family Medicine; Referring Provider Physician Assistant; Visit Provider Physician Assistant | DX: N89.8 Other specified noninflammatory disorders of vagina (principal) | CPT/HCPCS: 87491; 87591; 87661; 87798; 87801 ==

== ENCOUNTER → 2023-03-14 13:32 | Outpatient (CLI) | payer OTHER, SELFPAY | PROVIDERS: PCP Family Medicine; Referring Provider Family Medicine; Visit Provider Family Medicine | DX: Z23 Encounter for immunization (principal) | CPT/HCPCS: 90471; 90686 ==

== ENCOUNTER → 2023-06-29 13:28 | Outpatient (CLI) | payer OTHER, SELFPAY | PROVIDERS: PCP Family Medicine; Visit Provider Family Medicine | DX: N30.01 Acute cystitis with hematuria (principal) | CPT/HCPCS: 87077; 87086; 87186 ==

== ENCOUNTER → 2023-09-01 08:51 | Outpatient (CLI) | payer OTHER, SELFPAY | PROVIDERS: PCP Family Medicine; Visit Provider Nurse Practitioner Adult Health | DX: Z01.419 Encounter for gynecological examination (general) (routine) without abnormal findings (principal); N89.8 Other specified noninflammatory disorders of vagina; Z11.3 Encounter for screening for infections with a predominantly sexual mode of transmission | CPT/HCPCS: 87491; 87591; 87661 ==

== ENCOUNTER → 2023-12-23 07:52 | Outpatient (CLI) | payer OTHER, SELFPAY ==
[2023-12-23 19:04] LABS: Add Manual Diff / Slide Review NO; Basophils Absolute Auto 0 /uL (0-100); Basophils Percent Auto 0.6 % (0-2); Eosinophils Absolute Auto 200 /uL (0-450); Eosinophils Percent Auto 2.2 % (2-4); Hematocrit 40.9 % (36-46); Hemoglobin 13.9 g/dL (12.0-16.0); Lymphocytes Absolute Auto 3600 /uL (1100-4500); Mean Corpuscular HGB Conc 33.9 % (30-36); Mean Corpuscular Hemoglobin 29.6 PG (26-34); Mean Corpuscular Volume 87.5 fL (80-100); Monocytes Absolute Auto 600 /uL (0-900); Monocytes Percent Auto 7.6 % (3-14); Neutrophils Absolute Auto 3100 /uL (1500-7000); Neutrophils Percent Auto 41.6 % (50-75); Platelet Count 258 X10^3/uL (150-400); Red Blood Cell Count 4.68 X10^6/uL (4.0-5.2); White Blood Cell Count 7.4 X10^3/uL (4.5-11.0)
[2023-12-23 19:16] LABS: Alanine Aminotransferase 23 IU/L (<35); Albumin 4.7 g/dL (3.5-5.0); Albumin Globulin Ratio 1.4 (1.0-2.8); Alkaline Phosphatase 51 U/L (38-126); BUN Creatinine Ratio 17.8 (6-22); Bilirubin Total 0.8 mg/dL (0.2-1.3); Blood Urea Nitrogen 13 mg/dL (7-17); Carbon Dioxide 22 mmol/L (22-32); Chloride 105 mmol/L (98-107); Cholesterol 171 mg/dL (140-199); Estimated Glomerular Filt Rate > 60 mL/min (>60); Globulin 3.4 g/dL (1.7-4.1); Glucose 91 mg/dL (70-100); HDL Cholesterol 63 mg/dL (40-60); LDL Cholesterol Calculated 90 mg/dL (<100); Sodium 137 mmol/L (137-145); Total Protein 8.1 g/dL (6.3-8.2); Triglycerides 89 mg/dL (35-150)
[2023-12-23 19:25] LABS: HEMOLYSIS 83 (0-50); Potassium 4.3 mmol/L (3.4-5.1)
[2023-12-23 19:27] LABS: Aspartate Aminotransferase 46 IU/L (14-36)
[2023-12-23 19:56] LABS: Ferritin 10 ng/mL (6-137)
[2023-12-23 20:01] LABS: HEMOLYSIS 45 (0-50); Iron 81 ug/dL (37-170)
[2023-12-23 20:17] LABS: Percent Iron Saturation 20 % (15-50); Total Iron Binding Capacity 408 ug/dL (265-497); Transferrin 302 mg/dL (206-381)
[2023-12-23 20:24] LABS: Free T3, Triiodothyronine Free 4.83 pg/mL (2.77-5.27)
[2023-12-23 20:39] LABS: TSH w/ Reflex to FT4 1.43 uIU/mL (0.47-4.68)
== END ==
PROVIDERS: PCP Family Medicine; Visit Provider Family Medicine
DX: R53.83 Other fatigue (principal); Z13.220 Encounter for screening for lipoid disorders; Z13.1 Encounter for screening for diabetes mellitus
CPT/HCPCS: 80053; 80061; 82306; 82728; 83036; 83540; 83550; 84443; 84481; 85025

== ENCOUNTER → 2024-07-11 15:57 | Outpatient (CLI) | payer OTHER, SELFPAY | PROVIDERS: PCP Family Medicine; Visit Provider Nurse Practitioner Adult Health | DX: N76.0 Acute vaginitis (principal); B96.89 Other specified bacterial agents as the cause of diseases classified elsewhere; R10.2 Pelvic and perineal pain; N89.8 Other specified noninflammatory disorders of vagina | CPT/HCPCS: 87077; 87086; 87186 ==

== ENCOUNTER → 2024-11-07 11:13 | Outpatient (CLI) | payer OTHER, SELFPAY ==
[2024-11-07 19:33] LABS: Add Manual Diff / Slide Review NO; Basophils Absolute Auto 0 /uL (0-100); Basophils Percent Auto 0.3 % (0-2); Eosinophils Absolute Auto 0 /uL (0-450); Eosinophils Percent Auto 0.4 % (2-4); Hematocrit 39.6 % (36-46); Hemoglobin 13.3 g/dL (12.0-16.0); Lymphocytes Absolute Auto 2700 /uL (1100-4500); Lymphocytes Percent Auto 39.2 % (25-40); Mean Corpuscular HGB Conc 33.5 % (30-36); Mean Corpuscular Hemoglobin 29.5 PG (26-34); Monocytes Absolute Auto 300 /uL (0-900); Monocytes Percent Auto 4.4 % (3-14); Neutrophils Absolute Auto 3800 /uL (1500-7000); Neutrophils Percent Auto 55.7 % (50-75); Platelet Count 259 X10^3/uL (150-400); Red Cell Distribution Width 12.7 % (11.6-14.8); White Blood Cell Count 6.8 X10^3/uL (4.5-11.0)
[2024-11-07 20:08] LABS: Free T4, Direct Thyroxine 1.12 ng/dL (0.78-2.19)
[2024-11-07 20:25] LABS: Thyroid Stimulating Hormone 0.682 uIU/mL (0.47-4.68)
[2024-11-07 20:53] LABS: Vitamin B12 689 pg/mL (239-931)
== END ==
PROVIDERS: PCP Family Medicine; Visit Provider Nurse Practitioner Adult Health
DX: R45.86 Emotional lability (principal); N93.9 Abnormal uterine and vaginal bleeding, unspecified
CPT/HCPCS: 82306; 82607; 84439; 84443; 85025

== ENCOUNTER → 2024-11-20 12:05 | Outpatient (CLI) | payer OTHER, SELFPAY | LOC: LAB 12:05 | PROVIDERS: PCP Family Medicine; Visit Provider Family Medicine | DX: R39.89 Other symptoms and signs involving the genitourinary system (principal); R82.90 Unspecified abnormal findings in urine; M54.9 Dorsalgia, unspecified | CPT/HCPCS: 87077; 87086 ==